=== PATIENT | male | born 1975 | race Asian ===

== ENCOUNTER 2017-01-21 17:18 | Emergency (ER) | payer OTHER ==
[2017-01-21 17:24] VITALS: BP 136/79; PULSE 90; RESP 16; TEMP 97.9; O2SAT 96
--- NOTE | 2017-01-21 18:12 | EDPHY ---
H & P Stated Complaint: Abdo pain, nausea and 'body shakes' since 01/20/17, feels it more "stress" HPI/ROS: CHIEF COMPLAINT: Abdominal pain, nausea, shakiness HISTORY OF PRESENT ILLNESS:This is a 42 year old male, in general good health, who presents with several complaints -- including diffuse abdominal pain, nausea , shakiness. This began after an encounter with and his employer in which he was told that the had a bad performance review and was in danger of losing his job. He thinks that his symptoms are related to stress. He is quite concerned about the meeting that he had at work and feels that he has been treated unfairly. He has not had fever, vomiting, diarrhea, urinary symptoms. He denies chest pain, rapid heart rate, shortness of breath. No recent illness. REVIEW OF SYSTEMS: A ten point review of systems was performed and is negative with the exception of the items mentioned in the HPI. Past medical history: None Past surgical history: None Social history: He works in IT. He is . No tobacco, alcohol, illicits. General Appearance: Alert. Vital signs reviewed. Blood pressure 136/79 all other vital signs normal at triage. Eyes: Pupils equal and round, no conjunctival injection, no discharge. Anicteric. ENT, Mouth: Mucous membranes are moist, no oropharyngeal erythema or edema. Neck: No lymphadenopathy, supple. Respiratory: Lungs are clear to auscultation; no wheezes, rales, or rhonchi. Cardiovascular: Regular rate and rhythm; no murmur, rub, or gallop. Gastrointestinal: Abdomen is soft and nontender, no masses or organomegaly, bowel sounds normal. Skin: Warm and dry, no rashes on exposed skin, normal color. Back: Nontender to palpation over the thoracolumbar spine. No CVAT. Extremities: No lower extremity edema, no calf tenderness or swelling. Neurological: Alert and oriented. Moving all four extremities easily and equally. No tremor. Psychiatric: Anxious affect. - Personal History Current Tetanus Diphtheria and Acellular Pertussis (TDAP): Yes - Medical/Surgical History Hx Asthma: No Hx Chronic Respiratory Disease: No Hx Diabetes: No Hx Cardiac Disease: No Hx Renal Disease: No Hx Cirrhosis: No Hx Alcoholism: No Hx HIV/AIDS: No Hx Splenectomy or Spleen Trauma: No Other PMH: Denies. - Social History Smoking Status: Never smoked Constitutional: Initial Vital Signs Temperature (C) 36.6 C 01/21/17 17:20 Heart Rate 90 01/21/17 17:20 Respiratory Rate 16 01/21/17 17:20 Blood Pressure 136/79 H 01/21/17 17:20 O2 Sat (%) 96 01/21/17 17:20 O2 Delivery Mode Room Air Allergies/Adverse Reactions: No Known Allergies Allergy (Unverified 03/22/10 00:21) Home Medications: Medication Instructions Recorded No Medications [NO HOME 1 ea MISC 12/22/10 MEDICATIONS] LORazepam [Ativan] 1 mg PO HS PRN #3 tab 01/21/17 Ondansetron Odt [Zofran Odt 4 mg 4 mg PO Q4 PRN #6 tab 01/21/17 (RX)] Medical Decision Making ED Course/Re-evaluation: It is my impression, and the patient agrees, that his symptoms are related to stress, likely brought on by recent events at work. He is having trouble sleeping and finds himself obsessing about work. I am providing RX for small quantity of ativan. Instructions and warnings given. I do not feel that additional work-up in the ED is needed. Physical exam is normal. He is not suicidal or homicidal. We talked about seeking professional counseling if he continues with anxiety and stress. I do not suspect an infection, respiratory or cardiac disease, or other cause for his symptoms. Departure - Departure Disposition: Home, Routine, Self-Care Clinical Impression: Stress at work Condition: Good Instructions: Stress (ED) Additional Instructions: Let Dr. Urbina know what is going on and if you end up needing a counselor he can direct you to 1. Use the Zofran under tongue if needed for nausea. You should try to eat and drink regularly. You can take one of the Ativan when you go to bed. This will help you fall asleep and will keep you from obsessing over your work situation. Referrals: Omaira Urbina MD [Primary Care Provider] - As per Instructions Prescriptions: LORazepam [Ativan] 1 mg PO HS PRN #3 tab PRN Reason: Anxiety Ondansetron Odt [Zofran Odt 4 mg (RX)] 4 mg PO Q4 PRN #6 tab PRN Reason: nausea
== END 2017-01-21 18:56 | disposition home or self-care (01) ==
DX: Z56.3 Stressful work schedule (principal)